=== PATIENT | female | born 1935 | race Two or more races ===

== ENCOUNTER 2019-04-24 17:39 | Emergency (ER) | payer OTHER ==
[~2019-04-24] VITALS: Ht 167.6 cm; Wt 68.0 kg
[~2019-04-24 17:39] MED LIST: LISINOPRIL-HCTZ1 TA7 PO; TENORMIN50 M1 PO
[2019-04-24] MEDS ORDERED: MEDROLPACK PO (23:00)
== END 2019-04-24 23:52 | disposition home or self-care (01) ==
LOC: ER 17:39
DX: G51.0 Bell's palsy (principal); G45.8 Other transient cerebral ischemic attacks and related syndromes